=== PATIENT | male | born 1985 | race Caucasian/White ===

== ENCOUNTER 2016-07-18 20:14 | Emergency (ER) | payer BC ==
[2016-07-18 20:24] VITALS: BP 138/71
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
== END 2016-07-18 20:48 | disposition home or self-care (01) ==
LOC: VM.ED 20:14 → SUPCPDRO 20:14 → VM.ED 20:48
DX: S69.81XA Other specified injuries of right wrist, hand and finger(s), initial encounter (principal); Y93.72 Activity, wrestling
CPT/HCPCS: 73130-RT; 99283

== ENCOUNTER 2017-02-07 18:35 | Emergency (ER) | payer OTHER, BC ==
[2017-02-07 18:49] VITALS: BP 139/89
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
== END 2017-02-07 19:24 | disposition home or self-care (01) ==
LOC: VM.ED 18:35
DX: S61.232A Puncture wound without foreign body of right middle finger without damage to nail, initial encounter (principal); F17.210 Nicotine dependence, cigarettes, uncomplicated; Z88.5 Allergy status to narcotic agent; W27.3XXA Contact with needle (sewing), initial encounter
CPT/HCPCS: 36415; 86703; 86706; 86803; 99283

== ENCOUNTER 2017-07-17 09:56 | Emergency (ER) | payer BC, OTHER ==
[2017-07-17 10:22] VITALS: BP 154/82
--- NOTE | 2017-07-17 16:52 | EDM.PDOC ---
ED HPI GENERAL MEDICAL PROBLEM - General Chief Complaint: ENT Problem Stated Complaint: PRESSURE R SIDE FACE Time Seen by Provider: 07/17/17 10:20 Source of Information: Reports: Patient History Limitations: Reports: No Limitations - History of Present Illness INITIAL COMMENTS - FREE TEXT/NARRATIVE: PtMoe presents to the ER with complaints of R sided facial pain, extending from his R lateral maxillary area extending superiorly intoR temporal area. He states that he has not had any fever or chills. States that he has a history of tooth decay and has a tooth with a cavity in this area. He denies any trouble swallowing. No rashes. No nausea or vomiting. Location: Reports: Face Quality: Reports: Ache, Throbbing Severity: Severe Left Face Pain Score (Numeric/FACES): 6 - Related Data Allergies Allergy/AdvReac Type Severity Reaction Status Date / Time morphine Allergy Redness Verified 07/17/17 10:15 Home Meds: Home Meds clonazePAM [Klonopin] 1 mg DAILY 07/17/17 [History] Past Medical History - Past Health History Medical/Surgical History: Denies Medical/Surgical History HEENT History: Reports: Impaired Vision Neurological History: Reports: Other (See Below) Other Neuro History: Patient has had viral meningitis three times. Psychiatric History: Reports: Anxiety Social & Family History - Tobacco Use Smoking Status *Q: Current Every Day Smoker Years of Tobacco use: 15 Packs/Tins Daily: 1 - Caffeine Use Caffeine Use: Reports: Soda - Alcohol Use Days Per Week of Alcohol Use: 1 Number of Drinks Per Day: 5 Total Drinks Per Week: 5 - Recreational Drug Use Recreational Drug Use: No ED ROS GENERAL - Review of Systems Review Of Systems: See Below Constitutional: Reports: No Symptoms HEENT: Reports: Dental Pain Respiratory: Reports: No Symptoms Cardiovascular: Reports: No Symptoms Endocrine: Reports: No Symptoms GI/Abdominal: Reports: No Symptoms Musculoskeletal: Reports: No Symptoms Skin: Reports: No Symptoms Neurological: Reports: No Symptoms ED EXAM, GENERAL - Physical Exam Exam: See Below General Appearance: Alert, WD/WN, No Apparent Distress Ears: Normal External Exam, Normal Canal, Hearing Grossly Normal, Normal TMs Throat/Mouth: Normal Inspection, Normal Lips, Normal Gums, Normal Oropharynx, Normal Voice, No Airway Compromise, Other (Large cavity noted to R upper molar with surrounding discomfort on palpation of the area.) Head: Atraumatic, Normocephalic Neck: Normal Inspection, Supple, Non-Tender, Full Range of Motion Respiratory/Chest: No Respiratory Distress, Lungs Clear, Normal Breath Sounds, No Accessory Muscle Use, Chest Non-Tender Cardiovascular: Normal Peripheral Pulses, Regular Rate, Rhythm, No Edema, No Gallop, No JVD, No Murmur, No Rub GI/Abdominal: Normal Bowel Sounds, Soft, Non-Tender, No Organomegaly, No Distention, No Abnormal Bruit, No Mass (Male) Exam: Deferred Rectal (Males) Exam: Deferred Back Exam: Normal Inspection, Full Range of Motion, NT Extremities: Normal Inspection, Normal Range of Motion, Non-Tender, Normal Capillary Refill, No Pedal Edema Neurological: Alert, Oriented, CN II-XII Intact, Normal Cognition, Normal Gait, Normal Reflexes, No Motor/Sensory Deficits Psychiatric: Normal Affect, Normal Mood Skin Exam: Warm, Dry, Intact, Normal Color, No Rash Course - Vital Signs Last Recorded V/S: Last Vital Signs Temp 36.5 C 07/17/17 10:05 Pulse 74 07/17/17 10:05 Resp 16 07/17/17 10:05 BP 154/82 H 07/17/17 10:05 Pulse Ox Departure - Departure Time of Disposition: 10:45 Disposition: Home, Self-Care 01 Condition: Good Clinical Impression: Dental caries - Discharge Information Instructions: Dental Abscess, [id number] Forms: ED Department Discharge Additional Instructions: Augmentin 875mg twice daily for 10 days [place] 5/325mg every 6 hours as needed for pain Continue with Ibuprofen 600mg every 6 hours Drink plenty of fluids
== END 2017-07-17 10:45 | disposition home or self-care (01) ==
LOC: VM.ED 09:56
DX: K02.9 Dental caries, unspecified (principal); F17.210 Nicotine dependence, cigarettes, uncomplicated; Z88.5 Allergy status to narcotic agent; Z79.899 Other long term (current) drug therapy
CPT/HCPCS: 99282

== ENCOUNTER 2018-06-13 04:30 | Emergency (ER) | payer OTHER, BC ==
[2018-06-13 05:42] VITALS: BP 148/71
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
== END 2018-06-13 05:15 | disposition home or self-care (01) ==
LOC: VM.ED 04:30
DX: S00.83XA Contusion of other part of head, initial encounter (principal); Z88.5 Allergy status to narcotic agent; Z79.899 Other long term (current) drug therapy; F17.210 Nicotine dependence, cigarettes, uncomplicated; Y04.8XXA Assault by other bodily force, initial encounter
CPT/HCPCS: 99284

== ENCOUNTER 2018-07-31 22:53 | Emergency (ER) | payer BC, OTHER ==
--- NOTE | 2018-07-31 22:55 | EDM.PDOC ---
ED HPI GENERAL MEDICAL PROBLEM - General Chief Complaint: Laceration Stated Complaint: Left thumb laceration Time Seen by Provider: 07/31/18 22:53 - History of Present Illness INITIAL COMMENTS - FREE TEXT/NARRATIVE: Patient presents the emergency room at [facility] for the evaluation of a laceration to the volar surface of the left thumb. The patient sustained the laceration while he was picking up debris from the ground. The laceration was caused by a piece of metal. The patient is up-to-date with his tetanus. The patient does not have any numbness tingling or paresthesia to the left upper extremity. No tendon involvement. Patient has full range of motion of the left thumb. Onset: Today Onset Date: 07/31/18 - Related Data Allergies Allergy/AdvReac Type Severity Reaction Status Date / Time morphine Allergy Redness Verified 06/13/18 04:32 Home Meds: Home Meds clonazePAM [Klonopin] 1 mg PO DAILY 07/17/17 [History] Fenofibrate Nanocrystallized [Fenofibrate] 1 tab PO DAILY 06/13/18 [History] Rosuvastatin Calcium 1 tab PO DAILY 06/13/18 [History] Past Medical History - Past Health History Medical/Surgical History: Denies Medical/Surgical History HEENT History: Reports: Impaired Vision Other HEENT History: Seasonal allergies. 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 Psychiatric History: Reports: Anxiety - Past Surgical History HEENT Surgical History: Reports: Tonsillectomy, Other (See Below) Other HEENT Surgeries/Procedures: [place] teeth removal Social & Family History - Caffeine Use Caffeine Use: Reports: Soda ED ROS GENERAL - Review of Systems Review Of Systems: See Below Constitutional: Denies: Fever, Chills Respiratory: Denies: Shortness of Breath, Cough Cardiovascular: Denies: Chest Pain, Palpitations Skin: Reports: Wound Neurological: Reports: No Symptoms ED EXAM, SKIN/RASH Exam: See Below Exam Limited By: No Limitations General Appearance: Alert, No Apparent Distress Respiratory/Chest: No Respiratory Distress, Lungs Clear, Normal Breath Sounds Cardiovascular: Normal Peripheral Pulses, Regular Rate, Rhythm Peripheral Pulses: 2+: Radial (L), Radial (R) Neurological: Alert, Oriented Skin: Warm, Dry, Normal Color, Wound/Incision (2 cm horizontal laceration, volar surface of left thumb; will require surgical closure for optimal would healing.) ED SKIN PROCEDURES - Laceration/Wound Repair Left Digit - 1st (Thumb) Lac/Wound length In cm: 2 Appearance: Subcutaneous, Mildly Contaminated Distal NVT: Neuro & Vascular Intact, No Tendon Injury Anesthetic Type: Local Local Anesthesia - Lidocaine (Xylocaine): 2% Plain Skin Prep: Chlorhexidine (Hibiciens), Saline Exploration/Debridement/Repair: Wound Explored, In a Bloodless Field, Explored to Base, No Foreign Material Found Closed with: Sutures Suture Size: 4-0 # of Sutures: 4 Suture Type: Nylon, Interrupted, Simple Sterile Dressing Applied: Nurse Tetanus Status Addressed: Yes Complications: No Course - Orders/Labs/Meds Meds: Medications Discontinued Medications Generic Name Dose Route Start Last Admin Trade Name Freq PRN Reason Stop Dose Admin Lidocaine HCl 10 ml 07/31/18 22:54 Xylocaine-Mpf 2% (Sterile-Kvng) INJECT 07/31/18 22:55 ONETIME ONE Departure - Departure Time of Disposition: 23:51 Disposition: Home, Self-Care 01 Condition: Good Clinical Impression: Thumb laceration Qualifiers: Encounter type: initial encounter Damage to nail status: without damage Foreign body presence: without foreign body Laterality: left Qualified Code(s): S61.012A - Laceration without foreign body of left thumb without damage to nail , initial encounter - Discharge Information *PRESCRIPTION DRUG MONITORING PROGRAM REVIEWED*: Not Applicable *COPY OF PRESCRIPTION DRUG MONITORING REPORT IN PATIENT FENG: Not Applicable Instructions: Laceration Care, Adult, Sutured Wound Care Referrals: Robin Garrett NP [Primary Care Provider] - Forms: ED Department Discharge Additional Instructions: Keep area clean and dry. Do not get sutures wet. Sutures remain in place for 10 days. Follow-up with your PCP in 10 days for wound recheck and possible suture removal. - Problem List Review Problem List Initiated/Reviewed/Updated: Yes - Assessment/Plan Assessment:: Thumb laceration Plan: The area was closed with 4 4-0 nylon sutures. Patient tolerated well. No complications. Wound and laceration care discussed with patient. Suture care also discussed. The patient is up-to-date with his tetanus immunization. Signs and symptoms of infection were discussed. Patient needs to see his PCP in 10 days for suture removal.
[2018-07-31] MEDS: Lidocaine 2% 10 ML Amp INJECT ONE (23:10)
[2018-08-01 01:02] VITALS: BP 140/90
== END 2018-07-31 23:58 | disposition home or self-care (01) ==
LOC: VM.ED 22:53
DX: S61.012A Laceration without foreign body of left thumb without damage to nail, initial encounter (principal); Z79.899 Other long term (current) drug therapy; Z88.5 Allergy status to narcotic agent; W26.8XXA Contact with other sharp object(s), not elsewhere classified, initial encounter
CPT/HCPCS: 12001; 99282; J2001

== ENCOUNTER 2020-04-12 15:12 | Emergency (ER) | payer BC, OTHER ==
[2020-04-12] MEDS ORDERED: Ondansetron 4 MG/2 ML SDV ONE (15:24)
--- NOTE | 2020-04-12 15:29 | EDM.PDOC ---
ED HPI GENERAL MEDICAL PROBLEM - General Stated Complaint: TRAM CODE Time Seen by Provider: 04/12/20 15:12 Source of Information: Reports: Patient History Limitations: Reports: No Limitations - History of Present Illness INITIAL COMMENTS - FREE TEXT/NARRATIVE: Pt. presents to ER with complaints of L upper arm pain post fall. 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 Pt. states that he fell backward onto the ground. Pt. states that he did strike his head, but remembers the whole event. No LOC. Denies any headache or confusion. Pt. was brought in to ER as a trauma code, in long spine board with c-collar. Denies any cervical spine pain. Pt. denies any abdominal or chest pain. No shortness of breath. He complains of some low back pain, but he states that it is not worse than normal and he feels as though it is due to his chronic back pain. Denies landing on his feet. IV access was established. Pt. was given IV fentanyl by EMS prior to arrival to ER. Onset: Today Onset Date: 04/12/20 Location: Reports: Upper Extremity, Left Quality: Reports: Ache Severity: Severe - Related Data Allergies Allergy/AdvReac Type Severity Reaction Status Date / Time morphine Allergy Redness Verified 08/01/18 01:03 Home Meds: Home Meds clonazePAM [Klonopin] 1 mg PO DAILY 07/17/17 [History] Fenofibrate Nanocrystallized [Fenofibrate] 1 tab PO DAILY 06/13/18 [History] Rosuvastatin Calcium 1 tab PO DAILY 06/13/18 [History] Past Medical History - Past Health History Medical/Surgical History: Denies Medical/Surgical History HEENT History: Reports: Impaired Vision Other HEENT History: Seasonal allergies. 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 Psychiatric History: Reports: Anxiety - Past Surgical History HEENT Surgical History: Reports: Tonsillectomy, Other (See Below) Other HEENT Surgeries/Procedures: [place] teeth removal Social & Family History - Caffeine Use Caffeine Use: Reports: Soda ED ROS GENERAL - Review of Systems Review Of Systems: See Below Constitutional: Reports: No Symptoms HEENT: Reports: No Symptoms Respiratory: Reports: No Symptoms Cardiovascular: Reports: No Symptoms Endocrine: Reports: No Symptoms GI/Abdominal: Reports: No Symptoms : Reports: No Symptoms Musculoskeletal: Reports: Arm Pain Skin: Reports: No Symptoms Neurological: Reports: No Symptoms Psychiatric: Reports: No Symptoms Hematologic/Lymphatic: Reports: No Symptoms Immunologic: Reports: No Symptoms ED EXAM, GENERAL - Physical Exam Exam: See Below Exam Limited By: No Limitations General Appearance: Alert, WD/WN, No Apparent Distress Eye Exam: Bilateral Eye: EOMI, Normal Fundi, Normal Inspection, PERRL Ears: Normal External Exam, Normal Canal, Hearing Grossly Normal, Normal TMs Ear Exam: Bilateral Ear: Auricle Normal, Canal Normal, TM normal Nose: Normal Inspection, Normal Mucosa, No Blood Throat/Mouth: Normal Inspection, Normal Teeth, Normal Gums, Normal Oropharynx, Normal Voice, No Airway Compromise Head: Atraumatic, Normocephalic Neck: Normal Inspection, Supple, Non-Tender, Full Range of Motion Respiratory/Chest: No Respiratory Distress, Lungs Clear, Normal Breath Sounds, No Accessory Muscle Use, Chest Non-Tender Cardiovascular: Normal Peripheral Pulses, Regular Rate, Rhythm, No Edema, No JVD, No Murmur Peripheral Pulses: 4+: Radial (L) GI/Abdominal: Soft, Non-Tender, No Organomegaly, No Distention, No Mass (Male) Exam: Deferred Rectal (Males) Exam: Deferred Back Exam: Normal Inspection, Full Range of Motion Extremities: Normal Inspection, Normal Range of Motion, Non-Tender, No Pedal Edema, Normal Capillary Refill Neurological: Alert, Oriented, CN II-XII Intact, Normal Cognition, Normal Gait, Normal Reflexes, No Motor/Sensory Deficits Psychiatric: Normal Affect, Normal Mood Skin Exam: Warm, Dry, Intact, Normal Color, No Rash Lymphatic: No Adenopathy Course - Orders/Labs/Meds Orders: Active Orders 24 hr Category Date Time Status Humerus Lt [CR] Stat Exams 04/12/20 15:21 Taken Labs: Laboratory Tests 04/12/20 04/12/20 12 Range/Units 15:21 15:21 15:21 WBC 9.0 (4.0-10.0) x10^3/uL RBC 4.91 (4.5-6.0) x10^6/uL Hgb 15.2 D (14.0-18.0) g/dL Hct 43.2 (40.0-52.0) % MCV 88.0 (78.0-93.0) fL MCH 31.0 (26.0-32.0) pg MCHC 35.2 (32.0-36.0) g/dL RDW Coeff of [place]ette 12.3 (10.0-15.0) % Plt Count 197 (130-400) x10^3/uL Neut % (Auto) 59.9 (50.0-80.0) % Lymph % (Auto) 28.9 (25.0-50.0) % [place] % (Auto) 6.7 (2.0-11.0) % Eos % (Auto) 4.2 H (0.0-4.0) % Baso % (Auto) 0.3 (0.2-1.2) % PT 9.8 (9.5-12.3) SEC INR 0.9 L (2.0-3.5) APTT (25.6-32.8) SEC Sodium 137 (136-145) mmol/L Potassium 3.7 (3.5-5.1) mmol/L Chloride 101 (98-107) mmol/L Carbon Dioxide 25 (21-32) mmol/L Anion Gap 14.7 (10-20) mmol/L BUN 18 (7-18) mg/dL Creatinine 1.2 (0.70-1.30) mg/dL Est Cr Clr Drug Dosing TNP Estimated GFR (MDRD) > 60 Glucose 100 (74-106) mg/dL Calcium 8.9 (8.5-10.1) mg/dL Corrected Calcium 8.74 (8.5-10.1) mg/dL Total Bilirubin 0.6 (0.2-1.0) mg/dL AST 63 H (15-37) U/L ALT 189 H (16-63) U/L Alkaline Phosphatase 81 (46-116) U/L Total Protein 7.3 (6.4-8.2) g/dL Albumin 4.2 (3.4-5.0) g/dL Globulin 3.1 Albumin/Globulin Ratio 1.35 SARS CoV-2 RNA Rapid TORSTEN (NEGATIVE) 04/12/20 04/12/20 Range/Units 15:21 15:25 WBC (4.0-10.0) x10^3/uL RBC (4.5-6.0) x10^6/uL Hgb (14.0-18.0) g/dL Hct (40.0-52.0) % MCV (78.0-93.0) fL MCH (26.0-32.0) pg MCHC (32.0-36.0) g/dL RDW Coeff of [place] (10.0-15.0) % Plt Count (130-400) x10^3/uL Neut % (Auto) (50.0-80.0) % Lymph % (Auto) (25.0-50.0) % [place] % (Auto) (2.0-11.0) % Eos % (Auto) (0.0-4.0) % Baso % (Auto) (0.2-1.2) % PT (9.5-12.3) SEC INR (2.0-3.5) APTT 22.0 L (25.6-32.8) SEC Sodium (136-145) mmol/L Potassium (3.5-5.1) mmol/L Chloride (98-107) mmol/L Carbon Dioxide (21-32) mmol/L Anion Gap (10-20) mmol/L BUN (7-18) mg/dL Creatinine (0.70-1.30) mg/dL Est Cr Clr Drug Dosing Estimated GFR (MDRD) Glucose (74-106) mg/dL Calcium (8.5-10.1) mg/dL Corrected Calcium (8.5-10.1) mg/dL Total Bilirubin (0.2-1.0) mg/dL AST (15-37) U/L ALT (16-63) U/L Alkaline Phosphatase (46-116) U/L Total Protein (6.4-8.2) g/dL Albumin (3.4-5.0) g/dL Globulin Albumin/Globulin Ratio SARS CoV-2 RNA Rapid TORSTEN Negative (NEGATIVE) Meds: Medications Discontinued Medications Generic Name Dose Route Start Last Admin Trade Name Freq PRN Reason Stop Dose Admin Fentanyl 100 mcg 04/12/20 15:35 Sublimaze IVPUSH 04/12/20 15:36 ONETIME ONE Fentanyl 50 mcg 04/12/20 16:34 Fentanyl IVPUSH 04/12/20 16:35 ONETIME ONE Ondansetron HCl Confirm 04/12/20 15:24 04/12/20 15:15 Zofran Administered 04/12/20 15:25 4 mg Dose Administration 4 mg .ROUTE .[facility] ONE - Radiology Interpretation Free Text/Narrative:: Radiographs L humerus obtained, showing acute mid humerus fx. Departure - Departure Time of Disposition: 16:45 Disposition: DC/Tfer to Acute Hospital 02 Clinical Impression: Humerus fracture - Discharge Information Referrals: Robin Garrett NP [Primary Care Provider] - Forms: ED Department Discharge, Interfacility Transfer EMTALA - Problem List Review Problem List Initiated/Reviewed/Updated: Yes - My Orders Last 24 Hours: My Active Orders 04/12/20 15:21 Humerus Lt [CR] Stat - Assessment/Plan Last 24 Hours: My Active Orders 04/12/20 15:21 Humerus Lt [CR] Stat Plan: Pt. pain was well controlled with fentanyl. Pt. noted to have a severe mid humerus fx. Images were pushed to [facility] PACS. Dr. Pacheco accepts patient in transfer. Pt. adamantly refused ambulance transport, stating that he wants his to drive. He was told to not eat. IV was kept in place. All questions were answered.
[2020-04-12] MEDS ORDERED: fentaNYL 100 MCG/2 ML SDV IVPUSH ONE (15:35)
[2020-04-12 15:51] LABS: ANION GAP 14.7 mmol/L (10-20); CHLORIDE,CL 101 mmol/L (98-107); SODIUM,NA 137 mmol/L (136-145)
[2020-04-12] MEDS ORDERED: fentaNYL 50 MCG/ML SDV IVPUSH ONE (16:34)
--- NOTE | 2020-04-12 16:51 | CR ---
[id number] RAD/RAD Humerus Left 2V EXAM: RAD Humerus Left 2V CLINICAL DATA: TRAUMA COMPARISON: NO PREVIOUS SIMILAR EXAM IS AVAILABLE. FINDINGS: A single projection demonstrates a mid diaphyseal fracture of the left humerus with overriding of fracture fragments. IMPRESSION: DISPLACED MID DIAPHYSEAL LEFT HUMERAL FRACTURE Errol Villalba MD 04/12/20 [id number] Thank you for allowing us to participate in the care of your patient.
== END 2020-04-12 17:08 | disposition short-term general hospital (02) ==
LOC: SUPCPDRO 15:12 → VM.ED 15:12
DX: S42.302A Unspecified fracture of shaft of humerus, left arm, initial encounter for closed fracture (principal); E78.00 Pure hypercholesterolemia, unspecified; Z79.899 Other long term (current) drug therapy; F41.9 Anxiety disorder, unspecified; Z88.5 Allergy status to narcotic agent; Z20.828 Contact with and (suspected) exposure to other viral communicable diseases; W11.XXXA Fall on and from ladder, initial encounter
CPT/HCPCS: 36415; 73060; 80053; 85025; 85610; 85730; 87635; 96374; 96376; 99284; J2405; J3010; U0002

== ENCOUNTER 2020-09-01 03:38 | Emergency (ER) | payer MEDICAID, OTHER ==
[2020-09-01 03:52] VITALS: BP 143/84; PULSE 70
[2020-09-01] MEDS ORDERED: Ketorolac 30 MG/ML SDV IM ONE (04:01)
--- NOTE | 2020-09-01 04:07 | EDM.PDOC ---
ED HPI GENERAL MEDICAL PROBLEM - General Chief Complaint: Upper Extremity Injury/Pain Stated Complaint: arm injury, pain, fall Time Seen by Provider: 09/01/20 03:55 Source of Information: Reports: Patient - History of Present Illness INITIAL COMMENTS - FREE TEXT/NARRATIVE: Pee is a 35 y/o male who was going to the steps in his house and he missed the last 2-3 steps and fell onto his left upper arm. He had an ORIF of his Left humerus in April and is still recovering, so he is concerned he may have reinjured the arm when he fell tonight. Left Arm Pain Score (Numeric/FACES): 6 - Related Data Allergies Allergy/AdvReac Type Severity Reaction Status Date / Time morphine Allergy Redness Verified 08/01/18 01:03 Home Meds: Home Meds clonazePAM [Klonopin] 1 mg PO DAILY 07/17/17 [History] Fenofibrate Nanocrystallized [Fenofibrate] 1 tab PO DAILY 06/13/18 [History] Rosuvastatin Calcium 1 tab PO DAILY 06/13/18 [History] Past Medical History - Past Health History Medical/Surgical History: Denies Medical/Surgical History HEENT History: Reports: Impaired Vision Other HEENT History: Seasonal allergies. 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 Psychiatric History: Reports: Anxiety - Past Surgical History HEENT Surgical History: Reports: Tonsillectomy, Other (See Below) Other HEENT Surgeries/Procedures: [place] teeth removal Social & Family History - Caffeine Use Caffeine Use: Reports: Soda Review of Systems - Review of Systems Review Of Systems: See Below Constitutional: Reports: No Symptoms Eyes: Reports: No Symptoms Ears: Reports: No Symptoms Nose: Reports: No Symptoms Mouth/Throat: Reports: No Symptoms Respiratory: Reports: No Symptoms Cardiovascular: Reports: No Symptoms GI/Abdominal: Reports: No Symptoms Genitourinary: Reports: No Symptoms Musculoskeletal: Reports: Arm Pain (left upper arm) Skin: Reports: No Symptoms Neurological: Reports: No Symptoms Psychiatric: Reports: No Symptoms ED EXAM, GENERAL - Physical Exam Exam: See Below Exam Limited By: No Limitations General Appearance: Alert, WD/WN, No Apparent Distress Ears: Hearing Grossly Normal Nose: Normal Inspection Throat/Mouth: Normal Voice Head: Atraumatic, Normocephalic Neck: Supple Respiratory/Chest: No Respiratory Distress, Lungs Clear Cardiovascular: Normal Peripheral Pulses, Regular Rate, Rhythm GI/Abdominal: Normal Bowel Sounds, Soft (Male) Exam: Deferred Rectal (Males) Exam: Deferred Back Exam: Normal Inspection Extremities: Arm Pain, Other (Note well healed surgical scar on the posterior aspect of the arm, note erythema and warmth to the left uuper arm region adn some mild brusing on inspection) Neurological: Alert, Oriented, CN II-XII Intact Psychiatric: Normal Affect Skin Exam: Warm, Dry, Normal Color Course - Vital Signs Text/Narrative:: [id number] The patient was seen by the [employer] AND 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 Xray ordered. Toradol 30mg IM given for pain. Last Recorded V/S: Last Vital Signs Temp 36.3 C 09/01/20 03:47 Pulse 70 09/01/20 03:47 Resp 12 09/01/20 03:47 BP 143/84 H 09/01/20 03:47 Pulse Ox 96 09/01/20 03:47 - Orders/Labs/Meds Orders: Active Orders 24 hr Category Date Time Status Humerus Lt [CR] Stat Exams 09/01/20 04:00 Taken Meds: Medications Discontinued Medications Generic Name Dose Route Start Last Admin Trade Name Freq PRN Reason Stop Dose Admin Ketorolac Tromethamine 30 mg 09/01/20 04:01 Ketorolac 30 Mg/Ml Sdv IM 09/01/20 04:02 ONETIME ONE - Radiology Interpretation Free Text/Narrative:: XR Left Humerus=no acute fx, hardware intact (See final report) Departure - Departure Time of Disposition: 04:36 Disposition: Home, Self-Care 01 Condition: Good Clinical Impression: Left upper arm pain, S/P ORIF (open reduction internal fixation) fracture Fall Qualifiers: Encounter type: initial encounter Qualified Code(s): W19.XXXA - Unspecified fall, initial encounter - Discharge Information Instructions: Pain Medicine Instructions, [id number] Forms: ED Department Discharge Sepsis Event Note (ED) - Evaluation Sepsis Screening Result: No Definite Risk - Focused Exam Vital Signs: Vital Signs Temp Pulse Resp BP Pulse Ox 09/01/20 03:47 36.3 C 70 12 143/84 H 96 - My Orders Last 24 Hours: My Active Orders 09/01/20 04:00 Humerus Lt [CR] Stat - Assessment/Plan Last 24 Hours: My Active Orders 09/01/20 04:00 Humerus Lt [CR] Stat Assessment:: 1)Left Humerus Pain 2)S/P Fall 3)S/P ORIF Left Humerus Plan: -Ibuprofen 400mg oral every 6 hours as needed -Acetaminophen 650 mg oral every 6 hours as needed -Apply ice as able -If symptoms are not improving as expected, return to your Primary Care Provider for further care -Return to the ER as needed for any concerns
--- NOTE | 2020-09-01 10:08 | CR ---
[id number] RAD/RAD Humerus Left 2V EXAM: RAD Humerus Left 2V INDICATION: FELL, PREVIOUS ORIF. COMPARISON: None. DISCUSSION: Interval open reduction and internal fixation of humeral diaphysis fracture. Alignment is anatomic. There is osseous bridging across the fracture site, but portions of the fracture line remains visible. No evident hardware complication. IMPRESSION: 1. Previous humerus ORIF. No hardware complication or acute fracture is identified. Live Leo MD 09/01/20 1006 Thank you for allowing us to participate in the care of your patient.
== END 2020-09-01 04:42 | disposition home or self-care (01) ==
LOC: VM.ED 03:38
DX: M79.622 Pain in left upper arm (principal); Z96.698 Presence of other orthopedic joint implants; Z88.6 Allergy status to analgesic agent; Z79.899 Other long term (current) drug therapy; W10.9XXA Fall (on) (from) unspecified stairs and steps, initial encounter
CPT/HCPCS: 73060; 96372; 99283; J1885

== ENCOUNTER 2020-09-16 22:40 | Emergency (ER) | payer MEDICAID ==
[2020-09-16] MEDS ORDERED: Morphine 2 MG/ML SYRINGE IVPUSH ONE (22:53)
--- NOTE | 2020-09-16 23:10 | EDM.PDOC ---
ED HPI GENERAL MEDICAL PROBLEM - General Chief Complaint: Cardiovascular Problem Stated Complaint: CHEST PAIN Time Seen by Provider: 09/16/20 22:40 Source of Information: Reports: Patient, EMS History Limitations: Reports: No Limitations - History of Present Illness INITIAL COMMENTS - FREE TEXT/NARRATIVE: Pee is a 35 year old male who presents per EMS with complaints of anterior chest pain. States started very suddenly about 30-45 minutes ago. [place] "whoozy when it first came on", did not have syncopal episode but admits fell back against the door frame due to the pain. 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 Ate supper, hung out with family, did have intercourse this evening. Denies use of Viagra. Describes pain as pressure all across his chest. Feels nauseated. No shortness of breath but when pain hits, takes breath away. No diaphoresis. Does have history of hyperlipidemia, currently on a statin. No cardiac history. Was given 4 baby ASA per EMS. Onset: Today, Sudden Duration: Minutes:, Waxing/Waning Location: Reports: Chest Quality: Reports: Pressure, Sharp Severity: Severe Improves with: Reports: None Associated Symptoms: Reports: Chest Pain, Nausea/Vomiting. 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 Psychiatric History: Reports: Anxiety - Past Surgical History HEENT Surgical History: Reports: Tonsillectomy, Other (See Below) Other HEENT Surgeries/Procedures: [place] teeth removal Social & Family History - Family History Family Medical History: No Pertinent Family History - Tobacco Use Tobacco Use Status *Q: Current Every Day Tobacco User - Caffeine Use Caffeine Use: Reports: Soda ED ROS GENERAL - Review of Systems Review Of Systems: See Below Constitutional: Denies: Fever, Chills, Malaise, Weakness, Fatigue, Decreased Appetite HEENT: Denies: Ear Pain, Rhinitis, Sinus Problem, Throat Pain Respiratory: Reports: Pleuritic Chest Pain. Denies: Shortness of Breath, Cough Cardiovascular: Reports: Chest Pain. Denies: Edema, Lightheadedness Endocrine: Denies: Fatigue GI/Abdominal: Reports: Nausea. Denies: Abdominal Pain, Vomiting : Reports: No Symptoms Musculoskeletal: Reports: Back Pain Skin: Reports: No Symptoms Neurological: Reports: No Symptoms ED EXAM, GENERAL - Physical Exam Exam: See Below Exam Limited By: No Limitations General Appearance: Alert, WD/WN, Mild Distress Ears: Normal External Exam, Normal TMs Nose: Normal Inspection, Normal Mucosa, No Blood Throat/Mouth: Normal Inspection, Normal Oropharynx Head: Normocephalic Neck: Normal Inspection, Supple, Non-Tender Respiratory/Chest: No Respiratory Distress, Lungs Clear, Normal Breath Sounds, Other (chest tender with palpation to left anterior chest) Cardiovascular: Regular Rate, Rhythm, No Edema GI/Abdominal: Normal Bowel Sounds, Soft, Non-Tender Extremities: Normal Inspection, No Pedal Edema Neurological: Alert, Oriented Skin Exam: Warm, Dry #1 Interpretation EKG Date: 09/17/20 Rhythm: NSR P-Wave: Present QRS: Normal ST-T: Normal Comparison: No Change Course - Vital Signs Last Recorded V/S: Last Vital Signs Temp 100 F 09/16/20 22:40 Pulse 101 H 09/16/20 22:40 Resp 25 H 09/16/20 22:40 BP 148/83 H 09/16/20 22:40 Pulse Ox 95 09/16/20 22:40 - Orders/Labs/Meds Orders: Active Orders 24 hr Category Date Time Status Chest 2V [CR] Stat Exams 09/16/20 22:52 Ordered Labs: Laboratory Tests 09/16/20 09/16/20 09/16/20 Range/Units 23:11 23:11 23:11 WBC 10.7 H (4.0-10.0) x10^3/uL RBC 4.87 (4.5-6.0) x10^6/uL Hgb 15.1 (14.0-18.0) g/dL Hct 43.2 (40.0-52.0) % MCV 88.7 (78.0-93.0) fL MCH 31.0 (26.0-32.0) pg MCHC 35.0 (32.0-36.0) g/dL RDW Coeff of Odette 13.5 (10.0-15.0) % Plt Count 241 (130-400) x10^3/uL Neut % (Auto) 54.6 (50.0-80.0) % Lymph % (Auto) 37.4 (25.0-50.0) % [place] % (Auto) 5.5 (2.0-11.0) % Eos % (Auto) 2.2 (0.0-4.0) % Baso % (Auto) 0.3 (0.2-1.2) % D-Dimer, Quantitative < 0.19 (<=0.58) mg/LFEU Sodium 139 (136-145) mmol/L Potassium 3.8 (3.5-5.1) mmol/L Chloride 102 (98-107) mmol/L Carbon Dioxide 22 (21-32) mmol/L Anion Gap 18.8 H (5-15) mmol/L BUN 9 (7-18) mg/dL Creatinine 0.9 (0.70-1.30) mg/dL Est Cr Clr Drug Dosing 119.41 mL/min Estimated GFR (MDRD) > 60 Glucose 100 H (70-99) mg/dL Calcium 8.4 L (8.5-10.1) mg/dL Corrected Calcium 8.5 (8.5-10.1) mg/dL Total Bilirubin 0.4 (0.2-1.0) mg/dL AST 37 (15-37) U/L ALT 114 H (16-63) U/L Alkaline Phosphatase 83 (46-116) U/L Lactate Dehydrogenase 209 (85-227) U/L Creatine Kinase 302 (39-308) U/L Troponin I High Sens < 4 (<=76) ng/L Total Protein 7.1 (6.4-8.2) g/dL Albumin 3.9 (3.4-5.0) g/dL Globulin 3.2 Albumin/Globulin Ratio 1.22 Amylase (25-115) U/L Lipase (73-393) U/L Urine Color (YELLOW) Urine Appearance (CLEAR) Urine pH (5.0-8.0) Ur Specific [place] Urine Protein (NEGATIVE) mg/dL Urine Glucose (UA) (NEGATIVE) mg/dL Urine Ketones (NEGATIVE) mg/dL Urine Occult Blood (NEGATIVE) Urine Nitrite (NEGATIVE) Urine Bilirubin (NEGATIVE) Urine Urobilinogen (0.2) EU/dL Ur Leukocyte Esterase (NEGATIVE) Urine Opiates Screen (NEAGTIVE) Ur Buprenorphine Scrn (NEGATIVE) Ur Oxycodone Screen (NEGATIVE) Ur EDDP (Meth Metab) (NEGATIVE) Urine Methadone Screen (NEGATIVE) Ur Barbiturates Screen (NEGATIVE) Ur Tricyclics Screen (NEGATIVE) Ur Phencyclidine Scrn (NEGATIVE) Ur Amphetamine Screen (NEGATIVE) U Methamphetamines Scrn (NEGATIVE) Urine MDMA Screen (NEGATIVE) U Benzodiazepines Scrn (NEGATIVE) U Cocaine Metab Screen (NEGATIVE) U Marijuana (THC) Screen (NEGATIVE) 09/16/20 09/16/20 09/16/20 Range/Units 23:11 23:32 23:32 WBC (4.0-10.0) x10^3/uL RBC (4.5-6.0) x10^6/uL Hgb (14.0-18.0) g/dL Hct (40.0-52.0) % MCV (78.0-93.0) fL MCH (26.0-32.0) pg MCHC (32.0-36.0) g/dL RDW Coeff of Odette (10.0-15.0) % Plt Count (130-400) x10^3/uL Neut % (Auto) (50.0-80.0) % Lymph % (Auto) (25.0-50.0) % [place] % (Auto) (2.0-11.0) % Eos % (Auto) (0.0-4.0) % Baso % (Auto) (0.2-1.2) % D-Dimer, Quantitative (<=0.58) mg/LFEU Sodium (136-145) mmol/L Potassium (3.5-5.1) mmol/L Chloride (98-107) mmol/L Carbon Dioxide (21-32) mmol/L Anion Gap (5-15) mmol/L BUN (7-18) mg/dL Creatinine (0.70-1.30) mg/dL Est Cr Clr Drug Dosing mL/min Estimated GFR (MDRD) Glucose (70-99) mg/dL Calcium (8.5-10.1) mg/dL Corrected Calcium (8.5-10.1) mg/dL Total Bilirubin (0.2-1.0) mg/dL AST (15-37) U/L ALT (16-63) U/L Alkaline Phosphatase (46-116) U/L Lactate Dehydrogenase (85-227) U/L Creatine Kinase (39-308) U/L Troponin I High Sens (<=76) ng/L Total Protein (6.4-8.2) g/dL Albumin (3.4-5.0) g/dL Globulin Albumin/Globulin Ratio Amylase 45 (25-115) U/L Lipase 103 (73-393) U/L Urine Color Light yellow (YELLOW) Urine Appearance Clear (CLEAR) Urine pH 6.0 (5.0-8.0) Ur Specific [place] 1.010 Urine Protein Negative (NEGATIVE) mg/dL Urine Glucose (UA) Negative (NEGATIVE) mg/dL Urine Ketones Negative (NEGATIVE) mg/dL Urine Occult Blood Negative (NEGATIVE) Urine Nitrite Negative (NEGATIVE) Urine Bilirubin Negative (NEGATIVE) Urine Urobilinogen 0.2 (0.2) EU/dL Ur Leukocyte Esterase Negative (NEGATIVE) Urine Opiates Screen Negative (NEAGTIVE) Ur Buprenorphine Scrn Negative (NEGATIVE) Ur Oxycodone Screen Negative (NEGATIVE) Ur EDDP (Meth Metab) Negative (NEGATIVE) Urine Methadone Screen Negative (NEGATIVE) Ur Barbiturates Screen Negative (NEGATIVE) Ur Tricyclics Screen Negative (NEGATIVE) Ur Phencyclidine Scrn Negative (NEGATIVE) Ur Amphetamine Screen Negative (NEGATIVE) U Methamphetamines Scrn Negative (NEGATIVE) Urine MDMA Screen Negative (NEGATIVE) U Benzodiazepines Scrn Negative (NEGATIVE) U Cocaine Metab Screen Negative (NEGATIVE) U Marijuana (THC) Screen Negative (NEGATIVE) Meds: Medications Discontinued Medications Generic Name Dose Route Start Last Admin Trade Name Freq PRN Reason Stop Dose Admin Al Hydroxide/Mg Hydroxide 30 ml 09/16/20 23:56 09/17/20 00:05 Gi Cocktail Oral Solution 30 Ml PO 09/16/20 23:57 30 ml ONETIME ONE Administration Ketorolac Tromethamine 30 mg 09/16/20 23:56 09/17/20 00:04 Ketorolac 30 Mg/Ml Sdv IM 09/16/20 23:57 30 mg ONETIME ONE Administration Morphine Sulfate 1 mg 09/16/20 22:53 09/16/20 23:05 Morphine 2 Mg/Ml Syringe IVPUSH 09/16/20 22:54 1 mg ONETIME ONE Administration - Re-Assessments/Exams Free Text/Narrative Re-Assessment/Exam: 09/16/20 23:55 Lab results are all normal. EKG normal. Chest xray normal. Was given morphine without much relief. 09/17/20 0000 GI cocktail and Toradol IM given. 09/17/20 00:20 Is feeling somewhat better. Discussed discharge, reducing NSAIDs, limit caffeine, alcohol and nicotine. Start Prilosec. Follow up with Rboin and consider stress test. Departure - Departure Time of Disposition: 00:21 Disposition: Home, Self-Care 01 Condition: Good Clinical Impression: Atypical chest pain Instructions: Nonspecific Chest Pain, Adult, [id number] Referrals: Robin Garrett, DIRECTOR RADIO [Primary Care Provider] - Forms: ED Department Discharge Additional Instructions: 1. Push fluids 2. Rest 3. Prilosec daily 4. Decrease caffeine, nicotine, alcohol, spicy foods as could be causing GI irritation 5. Follow up this week with Robin, consider stress test. Sepsis Event Note (ED) - Focused Exam Vital Signs: Vital Signs Temp Pulse Resp BP Pulse Ox 09/16/20 22:40 100 F 101 H 25 H 148/83 H 95 - My Orders Last 24 Hours: My Active Orders 09/16/20 22:52 Chest 2V [CR] Stat - Assessment/Plan Last 24 Hours: My Active Orders 09/16/20 22:52 Chest 2V [CR] Stat
[2020-09-16 23:12] VITALS: BP 148/83; PULSE 101
[2020-09-16 23:43] LABS: BARBITURATE SCREEN,URINE NEGATIVE (NEGATIVE); BENZODIAZEPINES SCREEN,URINE NEGATIVE (NEGATIVE); EDDP,URINE SCREEN NEGATIVE (NEGATIVE); METHAMPHETAMINE SCREEN, URINE NEGATIVE (NEGATIVE); TCA SCREEN,URINE NEGATIVE (NEGATIVE); THC SCREEN,URINE 50 NG/ML NEGATIVE (NEGATIVE)
[2020-09-16 23:47] LABS: CHLORIDE,CL 102 mmol/L (98-107); SODIUM,NA 139 mmol/L (136-145)
[2020-09-16 23:48] LABS: ANION GAP 18.8 mmol/L (5-15)
[2020-09-16] MEDS ORDERED: GI Cocktail Oral Solution 30 ML PO ONE (23:56)
[2020-09-16] MEDS ORDERED: Ketorolac 30 MG/ML SDV IM ONE (23:56)
--- NOTE | 2020-09-17 09:28 | CR ---
[id number] RAD/RAD Chest PA And Lateral EXAM: RAD Chest PA And Lateral INDICATION: MID CHEST PAIN COMPARISON: December 2017. DISCUSSION: Cardiomediastinal silhouette is normal in size and contour. Lungs are clear. No pleural effusion or pneumothorax. IMPRESSION: Negative examination of the chest. John Cordero MD 09/17/20 0908 Thank you for allowing us to participate in the care of your patient.
== END 2020-09-17 00:30 | disposition home or self-care (01) ==
LOC: VM.ED 22:40
DX: R07.89 Other chest pain (principal); E78.00 Pure hypercholesterolemia, unspecified; Z88.6 Allergy status to analgesic agent; Z79.899 Other long term (current) drug therapy; Z72.0 Tobacco use
CPT/HCPCS: 36415; 71046; 80053; 80305-QW; 81003; 82150; 82550; 83615; 83690; 84484; 85025; 85379; 93010; 96372; 96374; 99284; 99285-25; A9270-GY; J1885; J2270

== ENCOUNTER 2021-10-08 04:18 | Emergency (ER) | payer MEDICAID ==
[2021-10-08 05:10] LABS: BARBITURATE SCREEN,URINE NEGATIVE (NEGATIVE); BENZODIAZEPINES SCREEN,URINE NEGATIVE (NEGATIVE); BUPRENORPHINE SCREEN,URINE NEGATIVE (NEGATIVE); METHAMPHETAMINE SCREEN, URINE NEGATIVE (NEGATIVE); THC SCREEN,URINE 50 NG/ML NEGATIVE (NEGATIVE)
[2021-10-08 05:20] LABS: CHLORIDE,CL 103 mmol/L (98-107); SODIUM,NA 142 mmol/L (136-145)
[2021-10-08 05:31] LABS: ANION GAP 17.8 mmol/L (5-15)
[2021-10-08 05:32] LABS: ACETAMINOPHEN 0 ug/ml (10-30)
[2021-10-08 05:41] VITALS: BP 134/88; PULSE 81
== END 2021-10-08 06:12 | disposition home or self-care (01) ==
LOC: VM.ED 04:18
DX: S31.114A Laceration without foreign body of abdominal wall, left lower quadrant without penetration into peritoneal cavity, initial encounter (principal); E78.00 Pure hypercholesterolemia, unspecified; Z79.82 Long term (current) use of aspirin; Z79.899 Other long term (current) drug therapy; X83.8XXA Intentional self-harm by other specified means, initial encounter
CPT/HCPCS: 80053; 80143; 80179; 80305-QW; 80307; 81003; 83735; 84100; 84443; 85025; 99284; 99285

== ENCOUNTER 2021-11-06 22:39 | Emergency (ER) | payer MEDICAID ==
[2021-11-06 22:57] VITALS: BP 129/70; PULSE 89
[2021-11-06] MEDS ORDERED: Acetaminophen/HYDROcodone 325-5 MG Tab PO ONE (23:24)
== END 2021-11-06 23:47 | disposition home or self-care (01) ==
LOC: VM.ED 22:39
DX: S40.022A Contusion of left upper arm, initial encounter (principal); S60.512A Abrasion of left hand, initial encounter; F17.210 Nicotine dependence, cigarettes, uncomplicated; F41.9 Anxiety disorder, unspecified; E78.00 Pure hypercholesterolemia, unspecified; Z79.899 Other long term (current) drug therapy; W01.0XXA Fall on same level from slipping, tripping and stumbling without subsequent striking against object, initial encounter
CPT/HCPCS: 73030; 73070; 99283; A9270

== ENCOUNTER 2022-08-08 04:28 | Emergency (ER) | payer MEDICAID ==
[2022-08-08 05:10] VITALS: BP 115/63; PULSE 88
== END 2022-08-08 05:35 | disposition home or self-care (01) ==
LOC: VM.ED 04:28
DX: S62.304A Unspecified fracture of fourth metacarpal bone, right hand, initial encounter for closed fracture (principal); E78.00 Pure hypercholesterolemia, unspecified; Z72.0 Tobacco use; Z88.5 Allergy status to narcotic agent; Z88.8 Allergy status to other drugs, medicaments and biological substances; Z79.82 Long term (current) use of aspirin; Z79.899 Other long term (current) drug therapy; W22.09XA Striking against other stationary object, initial encounter
CPT/HCPCS: 73130-RT; 99283

== ENCOUNTER 2022-12-26 06:36 | Emergency (ER) | payer MEDICAID, OTHER ==
[2022-12-26] MEDS: Lactated Ringers 1,000 ML IV ONE (06:45)
[2022-12-26] MEDS ORDERED: Sodium Chloride 0.9% 10 ML Syringe FLUSH PRN (06:50)
[2022-12-26 06:56] LABS: MEAN CORPUSCULAR HEMOGLOBIN 31.1 pg (26.0-32.0); MEAN CORPUSCULAR HGB CONC 35.9 g/dL (32.0-36.0); MEAN CORPUSCULAR VOLUME 86.7 fL (78.0-93.0); PLATELET COUNT,PLT 316 x10^3/uL (130-400); WHITE BLOOD CELL COUNT,WBC 15.9 x10^3/uL (4.0-10.0)
[2022-12-26 07:06] LABS: BAND PERCENT MAN 2 % (0-6); EOSINOPHILS ABSOLUTE MAN 0.2 x10^3/uL (0.0-0.5); EOSINOPHILS PERCENT MAN 1 % (0-4); LYMPHOCYTES ABSOLUTE MAN 7.2 x10^3/uL (1.0-4.8); LYMPHOCYTES PERCENT MAN 45 % (25-50); MONOCYTES ABSOLUTE MAN 0.5 x10^3/uL (0.0-0.8); MONOCYTES PERCENT MAN 3 % (2-11); NEUTROPHILS ABSOLUTE MAN 8.1 x10^3/uL (1.8-7.7); PLATELET COUNT ESTIMATE ADEQUATE; SEG NEUTROPHILS PERCENT MAN 49 % (50-80)
[2022-12-26 07:07] LABS: ALBUMIN 3.7 g/dL (3.4-5.0); BLOOD UREA NITROGEN,BUN 20 mg/dL (7-18); CALCIUM 8.7 mg/dL (8.5-10.1); CARBON DIOXIDE,CO2 23 mmol/L (21-32); CHLORIDE,CL 104 mmol/L (98-107); CREATININE 1.2 mg/dL (0.70-1.30); GLUCOSE RANDOM 176 mg/dL (70-99); POTASSIUM,K 3.2 mmol/L (3.5-5.1); PROTEIN TOTAL,TP 6.3 g/dL (6.4-8.2); SODIUM,NA 140 mmol/L (136-145)
[2022-12-26 07:08] LABS: INR 0.9 (2.0-3.5); PROTHROMBIN TIME 10.1 SEC (9.5-12.2)
[2022-12-26 07:08] LABS: A/G RATIO 1.42; ALANINE AMINOTRANSFERASE,ALT 49 U/L (16-63); ALKALINE PHOSPHATASE 63 U/L (46-116); ASPARTATE AMNIOTRANSFERASE,AST 22 U/L (15-37); BILIRUBIN TOTAL 0.2 mg/dL (0.2-1.0); C-REACTIVE PROTEIN 0.09 mg/dL (<=0.30); MAGNESIUM 2.1 mg/dL (1.8-2.4); PHOSPHORUS 3.9 mg/dL (2.6-4.7)
[2022-12-26 07:11] LABS: ANION GAP 16.2 mmol/L (5-15); ESTIMATED GFR 80 mL/min (>=60); ETHANOL BLOOD MEDICAL < 3 mg/dL (0-3)
[2022-12-26] MEDS: Ondansetron 4 MG/2 ML SDV IVPUSH ONE (07:21)
[2022-12-26] MEDS: fentaNYL 50 MCG/ML SDV IVPUSH ONE (07:51)
== END 2022-12-26 08:21 | disposition short-term general hospital (02) ==
LOC: VM.ED 06:36
DX: S65.102A Unspecified injury of radial artery at wrist and hand level of left arm, initial encounter (principal); Z88.5 Allergy status to narcotic agent; Z88.8 Allergy status to other drugs, medicaments and biological substances; E78.00 Pure hypercholesterolemia, unspecified; Z79.899 Other long term (current) drug therapy; Z79.82 Long term (current) use of aspirin; W26.0XXA Contact with knife, initial encounter
CPT/HCPCS: 36430; 73130; 80053; 80307; 83735; 84100; 85025; 85610; 85730; 86140; 86850; 86900; 86901; 86920; 86922; 96361; 96374; 96375; 99284; 99291; 99292; J2405; J3010; J7120; P9016

== ENCOUNTER 2023-12-02 05:05 | Emergency (ER) | payer MEDICAID, OTHER ==
[2023-12-02] MEDS ORDERED: Naloxone 2 MG/2 ML Syringe ONE ×2 (05:13→07:45)
[2023-12-02] MEDS ORDERED: EPINEPHrine 1:10,000 1 MG/10 ML Syringe ONE ×5 (05:13)
[2023-12-02] MEDS ORDERED: Sodium Bicarbonate 8.4% 50 MEQ/50 ML Syringe ONE ×2 (05:13→07:22)
[2023-12-02] MEDS ORDERED: Naloxone 0.4 MG/ML SDV ONE (07:36)
== END 2023-12-02 07:12 | disposition expired ==
LOC: VM.ED 05:05
DX: T71.162A Asphyxiation due to hanging, intentional self-harm, initial encounter (principal); E78.00 Pure hypercholesterolemia, unspecified; Z79.82 Long term (current) use of aspirin; Z79.899 Other long term (current) drug therapy; Z88.5 Allergy status to narcotic agent; Z88.8 Allergy status to other drugs, medicaments and biological substances
CPT/HCPCS: 36680; 92950; 96374; 99291; J0171; J2310; 99285; J3490